=== PATIENT | male | born 1975 | race Caucasian/White ===

== ENCOUNTER 2025-05-26 18:22 | Emergency (ER) | payer MEDICARE, OTHER ==
[~2025-05-26] VITALS: Ht 180.3 cm; Wt 210.9 kg
[~2025-05-26 18:22] MED LIST: ALLOPURINOL PO; COLCRYS0.6 MG PO; anti-inflammatory PO
[2025-05-26 19:05] VITALS: TEMP 99.3
[2025-05-26 19:38] LABS: BASOPHILS % 0.5 % (0.0-1.0); EOSINOPHILS % 0.7 % (0.0-6.0); LYMPHOCYTES % 23.2 % (18.0-39.1); MONOCYTES % 9.4 % (4.4-11.3); NEUTROPHILS % 65.6 % (38.7-80.0); RED CELL DISTRIBUTION WIDTH 13.6 % (11.7-14.4)
[2025-05-26 19:43] LABS: INR 1.21
[2025-05-26 19:53] LABS: EST GLOMERULAR FILTRATION RATE 100.0 ML/MIN (>=60)
[2025-05-26] MEDS ORDERED: IOPAMIDOL 370 MG/ML 100 ML INFUS..BTL INJ ONE (20:53)
[2025-05-26] MEDS: ONDANSETRON HCL INJ 2MG/ML 2ML 2 MG/ML VIAL IV STA (21:16)
[2025-05-26] MEDS: SODIUM CHLORIDE 0.9% 1000ML 1,000 ML IV ONE (21:17)
[2025-05-26 23:00] LABS: LEUKOCYTE ESTERASE ,URINE NEGATIVE (NEGATIVE); PROTEIN,URINE DIPSTICK NEGATIVE (NEGATIVE); URINE UROBILINOGEN 0.2 mg/dL (0.2 - 1)
[2025-05-26 23:03] LABS: EPITHELIAL CELLS,URINE MODERATE /LPF; WBC,URINE (MAN) 0-5 /HPF (0-5)
[2025-05-26 23:10] VITALS: PULSE 74; RESP 15
[2025-05-27] MEDS ORDERED: PANTOPRAZOLE SO40 MG PO (00:55)
[2025-05-27] MEDS ORDERED: ONDANSETRON ODT4 MG SL (00:55)
[2025-05-27 00:57] VITALS: BP 167/100; PULSE 64; RESP 16; TEMP 98.7; O2SAT 98
[2025-05-27] MEDS ORDERED: XARELTO20 MG PO (22:38)
== END 2025-05-27 01:12 | disposition home or self-care (01) ==
LOC: ER 19:37
DX: R10.11 Right upper quadrant pain (principal); K29.70 Gastritis, unspecified, without bleeding; R11.2 Nausea with vomiting, unspecified; K21.9 Gastro-esophageal reflux disease without esophagitis; R94.31 Abnormal electrocardiogram [ECG] [EKG]; Z86.718 Personal history of other venous thrombosis and embolism
CPT/HCPCS: 36415; 71045; 74177; 76705; 80053; 81001; 82550; 83690; 84484; 85025; 85610; 85730; 93005; 99284; J2405; J2470; J7030; Q9967

== ENCOUNTER 2025-05-27 15:22 | Inpatient (IN) | payer MEDICARE ==
[~2025-05-27] VITALS: Ht 180.3 cm; Wt 217.7 kg
[~2025-05-27 15:22] MED LIST changes: +ONDANSETRON ODT4 MG SL; +PANTOPRAZOLE SO40 MG PO
[2025-05-27 18:32] LABS: BASOPHILS % 0.4 % (0.0-1.0); EOSINOPHILS % 0.7 % (0.0-6.0); LYMPHOCYTES % 20.0 % (18.0-39.1); MONOCYTES % 7.4 % (4.4-11.3); NEUTROPHILS % 71.1 % (38.7-80.0); RED CELL DISTRIBUTION WIDTH 13.8 % (11.7-14.4)
[2025-05-27] MEDS: SODIUM CHLORIDE 0.9% 1000ML 1,000 ML IV ONE (18:42)
[2025-05-27] MEDS: Morphine 4mg INJECTION 4 MG/ML INJ IV ONE (18:45)
[2025-05-27] MEDS: ONDANSETRON HCL INJ 2MG/ML 2ML 2 MG/ML VIAL IV STA (18:46)
[2025-05-27 18:52] LABS: EST GLOMERULAR FILTRATION RATE 100.0 ML/MIN (>=60)
[2025-05-27 19:19] VITALS: TEMP 98.2
[2025-05-27] MEDS: SODIUM CHLORIDE 0.9% 1000ML 1,000 ML IV SCH (20:02)
[2025-05-27] MEDS: HYDROMORPHONE 1MG/1ML INJ IV PRN (20:02)
[2025-05-27 21:31] VITALS: PULSE 61; RESP 16
[2025-05-27] MEDS ORDERED: XARELTO20 MG PO (22:38)
[2025-05-27 22:40] VITALS: BP 150/102; PULSE 53; RESP 18; TEMP 98; O2SAT 99
[2025-05-27 23:00] VITALS: BP 150/102; PULSE 53; RESP 18; TEMP 98; O2SAT 99
[2025-05-28] VITALS (9 sets, daily range): BP systolic 131–140; BP diastolic 62–84; PULSE 56–72; RESP 16–20; TEMP 97–98.5; O2SAT 96–99
[2025-05-28 06:54] LABS: BASOPHILS % 0.8 % (0.0-1.0); EOSINOPHILS % 3.0 % (0.0-6.0); LYMPHOCYTES % 32.3 % (18.0-39.1); MONOCYTES % 9.3 % (4.4-11.3); NEUTROPHILS % 54.3 % (38.7-80.0); RED CELL DISTRIBUTION WIDTH 13.8 % (11.7-14.4)
[2025-05-28 07:10] LABS: EST GLOMERULAR FILTRATION RATE 104.0 ML/MIN (>=60)
[2025-05-28] MEDS: RIVAROXABAN 20 MG TABLET PO SCH (18:12)
[2025-05-28] MEDS: DONNATAL/LIDOCAINE/MAALOX 30 ML SUSP PO SCH (21:37)
[2025-05-29] VITALS (9 sets, daily range): BP systolic 139–159; BP diastolic 77–98; PULSE 52–66; RESP 18–20; TEMP 97.5–97.9; O2SAT 97–100
[2025-05-29] MEDS: LISINOPRIL 2.5 MG TAB PO SCH (15:12)
[2025-05-29] MEDS ORDERED: RIVAROXABAN 20 MG TABLET PO SCH (17:30)
[2025-05-30] VITALS: BP 141/96; PULSE 61; RESP 19; TEMP 97.9; O2SAT 98
[2025-05-30 04:00] VITALS: BP 148/82; PULSE 62; RESP 18; TEMP 97.8; O2SAT 98
[2025-05-30 07:00] LABS: BASOPHILS % 0.6 % (0.0-1.0); EOSINOPHILS % 2.9 % (0.0-6.0); LYMPHOCYTES % 27.2 % (18.0-39.1); MONOCYTES % 9.0 % (4.4-11.3); NEUTROPHILS % 60.2 % (38.7-80.0); RED CELL DISTRIBUTION WIDTH 13.4 % (11.7-14.4)
[2025-05-30 07:22] LABS: EST GLOMERULAR FILTRATION RATE 93.0 ML/MIN (>=60)
[2025-05-30 07:40] VITALS: BP 136/87; PULSE 59; RESP 17; TEMP 97.7; O2SAT 97
[2025-05-30 09:00] VITALS: BP 136/87; PULSE 59; RESP 18; TEMP 97.7; O2SAT 97
== END 2025-05-30 11:24 | disposition home or self-care (01) | DRG 392 ==
LOC: ER 18:13 → ERHOLD 19:36 → MED/SURG2 22:23 → OBSVTOIN 05-29 10:55
PROVIDERS: ADMIT Internal Medicine; ATTEND Internal Medicine
DX: R10.10 Upper abdominal pain, unspecified (principal); I82.5Z1 Chronic embolism and thrombosis of unspecified deep veins of right distal lower extremity; Z68.44 Body mass index [BMI] 60.0-69.9, adult; R11.2 Nausea with vomiting, unspecified; K21.9 Gastro-esophageal reflux disease without esophagitis; E66.01 Morbid (severe) obesity due to excess calories; Z71.3 Dietary counseling and surveillance; R00.1 Bradycardia, unspecified; R03.0 Elevated blood-pressure reading, without diagnosis of hypertension; Z86.711 Personal history of pulmonary embolism; Z79.01 Long term (current) use of anticoagulants; Z79.899 Other long term (current) drug therapy
CPT/HCPCS: 36415; 80053; 82550; 83036; 83690; 84484; 85025; 93005; 94799; 99284; G0378; J1171; J2270; J2405; J2470; J7030